=== PATIENT | female | born 1975 | race African-American/Black ===

== ENCOUNTER 2021-06-26 13:32 | Emergency (ER) | payer BC ==
[~2021-06-26 13:32] MED LIST: Iopamidol-370 76% 500 ML 1 ML ONE
[2021-06-26 14:49] LABS: #Lymphocytes 1.7 thou/uL (1.20-3.40); #Monocytes 0.6 thou/uL (0.11-0.59); #Neutrophils 9.6 thou/uL (1.40-6.50); %Basophils 0.3 % (0.0-1.0); %Eosinophils 0.4 % (0.0-10.0); %Lymphocytes 14.2 % (21.0-51.0); %Monocytes 4.8 % (0.0-10.0); %Neutrophils 80.3 % (42.0-75.0); Hemoglobin 14.5 g/dL (12.0-16.0); Mean Corpuscular HGB CONC 31.3 g/dL (32.0-36.0); Mean Corpuscular Hemoglobin 25.9 pg (27.0-31.0); Mean Corpuscular Volume 82.6 fL (78.0-98.0); Mean Platelet Volume 7.3 fL (7.4-10.4); Platelet Count 389 thou/uL (130-400); Red Blood Cell (RBC) Count 5.61 mill/uL (4.20-5.40)
[2021-06-26 15:00] LABS: Bilirubin Negative (Negative); Blood, Urine 3+ (Negative); Clarity Turbid (Clear); Glucose, Urine (Dipstick) Normal (Negative); Leukocyte 250 Leu/uL (Negative); Nitrite Negative (Negative); Protein, Urine (Dipstick) 20 mg/dL (Neg-Trace); RBC/HPF Greater than 50 HPF (0-3); Specific Gravity, Urine 1.016 (1.002-1.036); Squamous Epithelial None Seen HPF (0-3); Urobilinogen Normal mg/dL (Less than 2); WBC/HPF 21-50 HPF (0-3)
[2021-06-26 15:01] LABS: Pregnancy Test - Urine (BHCG) Negative (Negative); Pregu Control Background? CLEAR/WHITE (CLR/WHITE); Pregu Control Bar Appear? YES (CONTROL BAR); Specific Gravity 1.016 (1.002-1.036)
[2021-06-26 15:02] LABS: Bacteria/HPF 1+ HPF (None Seen)
[2021-06-26 15:09] LABS: Ketone, Urine 40 mg/dL (Negative)
[2021-06-26 15:12] LABS: ALT (SGPT) 15 U/L (8-55); AST (SGOT) 16 U/L (5-34); Albumin 4.4 g/dL (3.5-5.0); Alkaline Phosphatase 67 U/L (40-110); Anion Gap 21 mmol/L (10-20); BUN (Urea Nitrogen) 18 mg/dL (7.0-18.7); Bilirubin, Total 0.7 mg/dL (0.2-1.2); Calc. Creatinine Clearance 0 mL/min (70-130); Calcium 10.1 mg/dL (7.8-10.44); Carbon Dioxide 15 mmol/L (22-29); Chloride 101 mmol/L (98-107); Globulin 4.3 g/dL (2.4-3.5); Glucose 109 mg/dL (70-105); Potassium 3.8 mmol/L (3.5-5.1); Protein, Total 8.7 g/dL (6.0-8.3); Sodium 133 mmol/L (136-145)
[2021-06-26 22:42] LABS: SARS-CoV-2 PCR by NAA Not Detected (NotDetected)
== END 2021-06-26 16:50 | disposition home or self-care (01) ==
LOC: ERS 13:32
DX: R00.2 Palpitations (principal); R42 Dizziness and giddiness; R06.00 Dyspnea, unspecified; R53.81 Other malaise; R05 Cough; R06.01 Orthopnea; R06.02 Shortness of breath; E78.5 Hyperlipidemia, unspecified; I10 Essential (primary) hypertension; Z20.822 Contact with and (suspected) exposure to COVID-19
CPT/HCPCS: 36415; 70450; 71275; 80053; 81003; 81015; 81025; 84484; 85025; 93005; Q9967; U0003; U0005

== ENCOUNTER 2021-07-05 15:13 | Inpatient (IN) | payer BC ==
[2021-07-05] MEDS ORDERED: Senokot S 8.6-50 MG TAB PO PRN (22:53)
[2021-07-05] MEDS ORDERED: HYDROcodone/Acetaminophen 5/325 mg Tablet PO PRN (22:53)
[2021-07-05] MEDS ORDERED: Ondansetron PF 4 MG/2 ML Vial IVP PRN (22:53)
[2021-07-05] MEDS ORDERED: HYDROcodone/Acetaminophen 7.5/325 mg Tablet PO PRN (22:53)
[2021-07-05 22:55] VITALS: BMI 50.0
[2021-07-05] MEDS ORDERED: Melatonin 3 MG TAB PO PRN (23:04)
[2021-07-05] MEDS ORDERED: Metoprolol Tartrate 25 MG TAB PO SCH (23:15)
[2021-07-05] MEDS ORDERED: Enoxaparin Sodium 40 MG/0.4 ML SYRINGE SC SCH (23:15)
[2021-07-05 23:57] LABS: Troponin I Less than 0.010 ng/mL (< 0.028)
[2021-07-06 06:32] LABS: #Basophils 0.1 thou/uL (0.0-0.2); #Eosinphils 0.2 thou/uL (0.0-0.7); #Lymphocytes 1.9 thou/uL (1.20-3.40); #Monocytes 0.7 thou/uL (0.11-0.59); #Neutrophils 8.2 thou/uL (1.40-6.50); %Basophils 0.6 % (0.0-1.0); %Eosinophils 1.9 % (0.0-10.0); %Lymphocytes 16.8 % (21.0-51.0); %Monocytes 6.6 % (0.0-10.0); %Neutrophils 74.1 % (42.0-75.0); Mean Corpuscular HGB CONC 31.8 g/dL (32.0-36.0); Mean Corpuscular Hemoglobin 26.7 pg (27.0-31.0); Mean Corpuscular Volume 83.9 fL (78.0-98.0); Mean Platelet Volume 7.2 fL (7.4-10.4); Platelet Count 385 thou/uL (130-400); RBC Distribution Width 15.9 % (11.5-14.5); Red Blood Cell (RBC) Count 4.88 mill/uL (4.20-5.40); White Blood Cell (WBC) Count 11.1 thou/uL (4.8-10.8)
[2021-07-06 06:46] LABS: ALT (SGPT) 13 U/L (8-55); AST (SGOT) 13 U/L (5-34); Alkaline Phosphatase 64 U/L (40-110); Anion Gap 16 mmol/L (10-20); BUN (Urea Nitrogen) 14 mg/dL (7.0-18.7); Bilirubin, Total 0.3 mg/dL (0.2-1.2); Calc. Creatinine Clearance 161 mL/min (70-130); Calcium 9.9 mg/dL (7.8-10.44); Carbon Dioxide 21 mmol/L (22-29); Cardiac Risk 6.4 (Less than 4.5); Chloride 107 mmol/L (98-107); Cholesterol 197 mg/dl (< 200 Desired); Globulin 3.6 g/dL (2.4-3.5); Glucose 107 mg/dL (70-105); HDL Cholesterol 31 mg/dL (>60 Neg Risk); LDL Cholesterol, Calculated 151 mg/dL; Potassium 3.5 mmol/L (3.5-5.1); Protein, Total 7.6 g/dL (6.0-8.3); Sodium 140 mmol/L (136-145); Triglycerides 75 mg/dL (Less than 150)
[2021-07-06] MEDS: Enoxaparin Sodium 40 MG/0.4 ML SYRINGE SC SCH (08:39)
[2021-07-06] MEDS: Metoprolol Tartrate 25 MG TAB PO SCH ×2 (08:39→21:12)
[2021-07-06] MEDS ORDERED: Famotidine 20 MG TAB PO SCH (09:00)
[2021-07-06] MEDS ORDERED: Regadenoson 0.4 MG/5 ML SYRINGE ONE (11:26)
[2021-07-06] MEDS ORDERED: Lidocaine 2% Viscous Solution 20 ML, Aluminum & Magnesium Hydroxide 30 ML, Donnatal Eli... SSW SCH (17:36)
[2021-07-06] MEDS: Sucralfate 1 GM TAB PO SCH (21:11)
[2021-07-07] MEDS: Sucralfate 1 GM TAB PO SCH ×4 (08:21→20:23)
[2021-07-07] MEDS ORDERED: Lorazepam 0.5 MG TAB PO PRN (10:56)
[2021-07-07] MEDS: Metoprolol Tartrate 25 MG TAB PO SCH ×2 (11:02→20:23)
[2021-07-07] MEDS: Acetaminophen 325 MG TAB PO PRN (19:41)
[2021-07-08] MEDS: Metoprolol Tartrate 25 MG TAB PO SCH ×2 (09:21→20:08)
[2021-07-08] MEDS: Sucralfate 1 GM TAB PO SCH ×4 (09:21→20:08)
[2021-07-09] MEDS: Sucralfate 1 GM TAB PO SCH ×4 (06:21→20:27)
[2021-07-09] MEDS: Metoprolol Tartrate 25 MG TAB PO SCH ×2 (07:35→20:27)
[2021-07-09] MEDS ORDERED: Communication Order-Pharmacy FS SCH (08:15)
[2021-07-09] MEDS ORDERED: Sodium Chloride 0.9% 1,000 ML IV SCH (08:15)
[2021-07-09] MEDS ORDERED: Cetirizine HCl 10 MG TAB PO SCH (09:00)
[2021-07-09] MEDS ORDERED: Iopamidol 370 76% 50 ML VIAL FS ONE (10:30)
[2021-07-09] MEDS ORDERED: Iopamidol 370 76% 100 ML VIAL ONE (10:30)
[2021-07-09] MEDS ORDERED: Lidocaine 1% (PF) 30 ML VIAL ONE (11:15)
[2021-07-09] MEDS ORDERED: Fentanyl 100 MCG/2 ML VIAL ONE (12:17)
[2021-07-09] MEDS ORDERED: Midazolam HCl 2 mg/2 ml Vial ONE (12:17)
[2021-07-09] MEDS ORDERED: Verapamil 5 MG/2 ML VIAL ONE (12:20)
[2021-07-09] MEDS ORDERED: Nitroglycerin 100MG/250ML BOT 250 ML ONE (12:20)
[2021-07-09] MEDS ORDERED: Heparin 10,000 UNITS/ 10 ML VIAL ONE (12:20)
[2021-07-09] MEDS ORDERED: hydrALAZINE 20 MG/ML VIAL ONE (12:58)
[2021-07-09] MEDS: Fluticasone Propionate Nasal Spray 16 gm Bottle NASAL SCH (17:38)
[2021-07-09] MEDS: Loratadine 10 MG TAB PO SCH (17:38)
[2021-07-09] MEDS: Acetaminophen 325 MG TAB PO PRN (22:03)
[2021-07-10] MEDS: Sucralfate 1 GM TAB PO SCH (06:17)
[2021-07-10 07:58] VITALS: BP 133/86; TEMP 98.1
[2021-07-10] MEDS: Metoprolol Tartrate 25 MG TAB PO SCH (09:27)
[2021-07-10] MEDS: Enoxaparin Sodium 40 MG/0.4 ML SYRINGE SC SCH (09:27)
[2021-07-10] MEDS: Loratadine 10 MG TAB PO SCH (09:29)
[2021-07-10] MEDS: Fluticasone Propionate Nasal Spray 16 gm Bottle NASAL SCH (09:29)
== END 2021-07-10 10:53 | disposition home or self-care (01) | DRG 384 ==
LOC: 2NO 15:13 → OBSVTOIN 07-08 11:45
PROVIDERS: ADMIT Internal Medicine; ATTEND Family Medicine
PROC: 4A023N7 Measurement of Cardiac Sampling and Pressure, Left Heart, Percutaneous Approach (ICD-10-PCS; principal; 2021-07-09)
PROC: B2111ZZ Fluoroscopy of Multiple Coronary Arteries using Low Osmolar Contrast (ICD-10-PCS; 2021-07-09)
DX: K27.9 Peptic ulcer, site unspecified, unspecified as acute or chronic, without hemorrhage or perforation (principal); Z68.43 Body mass index [BMI] 50.0-59.9, adult; F41.0 Panic disorder [episodic paroxysmal anxiety]; I10 Essential (primary) hypertension; E78.5 Hyperlipidemia, unspecified; I49.1 Atrial premature depolarization; G89.29 Other chronic pain; M54.9 Dorsalgia, unspecified; K21.9 Gastro-esophageal reflux disease without esophagitis; E66.01 Morbid (severe) obesity due to excess calories; J32.9 Chronic sinusitis, unspecified; Z53.20 Procedure and treatment not carried out because of patient's decision for unspecified reasons; Z88.1 Allergy status to other antibiotic agents; Z88.8 Allergy status to other drugs, medicaments and biological substances; Z91.018 Allergy to other foods; Z79.899 Other long term (current) drug therapy; Z83.3 Family history of diabetes mellitus; Z82.49 Family history of ischemic heart disease and other diseases of the circulatory system; Z80.0 Family history of malignant neoplasm of digestive organs
CPT/HCPCS: 36415; 76705; 78452; 80061; 83880; 93005; 93010; 93017; 93306; 93458; 99152; 99153; A9500; J0360; J1644; J1650; J2001; J2250; J2785; J3010; J7050; Q9967

== ENCOUNTER 2021-07-29 07:07 | Day surgery (SDC) | payer BC ==
[2021-07-26 09:03] VITALS: BMI 48.2
[2021-07-29] MEDS ORDERED: Lidocaine 1% PF 5 ML VIAL ONE (08:51)
[2021-07-29] MEDS ORDERED: PROPOFOL 200 MG/20 ML VIAL ONE (08:51)
[2021-07-29] MEDS ORDERED: Glycopyrrolate 0.2 MG/ML 5 ML SYRINGE ONE (08:51)
[2021-07-29] MEDS ORDERED: Labetalol HCl 100 MG/20 ML VIAL ONE (10:35)
== END 2021-07-29 11:20 | disposition home or self-care (01) ==
LOC: SDC 07:07
PROVIDERS: ATTEND Internal Medicine Gastroenterology
PROC: 0DB78ZX Excision of Stomach, Pylorus, Via Natural or Artificial Opening Endoscopic, Diagnostic (ICD-10-PCS; principal; 2021-07-29)
DX: K29.70 Gastritis, unspecified, without bleeding (principal); K44.9 Diaphragmatic hernia without obstruction or gangrene; R14.0 Abdominal distension (gaseous); K59.00 Constipation, unspecified; E78.00 Pure hypercholesterolemia, unspecified; Z79.899 Other long term (current) drug therapy; Z88.0 Allergy status to penicillin; Z88.8 Allergy status to other drugs, medicaments and biological substances; Z91.018 Allergy to other foods
CPT/HCPCS: 88305; 88312; J2704

== ENCOUNTER 2021-07-30 10:56 | Outpatient (CLI) | payer BC | END 2021-07-30 10:57 | disposition home or self-care (01) | LOC: NM 10:56 | PROVIDERS: ATTEND Internal Medicine Gastroenterology | DX: R14.0 Abdominal distension (gaseous) (principal) | CPT/HCPCS: 78227; A9537 ==

== ENCOUNTER 2021-08-14 10:02 | Inpatient (IN) | payer BC ==
[2021-08-14 10:58] LABS: #Eosinphils 0.1 thou/uL (0.0-0.7); #Lymphocytes 1.8 thou/uL (1.20-3.40); #Monocytes 0.7 thou/uL (0.11-0.59); #Neutrophils 5.4 thou/uL (1.40-6.50); %Basophils 0.4 % (0.0-1.0); %Eosinophils 1.1 % (0.0-10.0); %Lymphocytes 22.1 % (21.0-51.0); %Monocytes 9.1 % (0.0-10.0); %Neutrophils 67.3 % (42.0-75.0); Hemoglobin 14.7 g/dL (12.0-16.0); Mean Corpuscular HGB CONC 32.8 g/dL (32.0-36.0); Mean Corpuscular Hemoglobin 27.9 pg (27.0-31.0); Mean Platelet Volume 9.9 fL (7.4-10.4); Platelet Count 169 thou/uL (130-400); RBC Distribution Width 18.1 % (11.5-14.5); Red Blood Cell (RBC) Count 5.27 mill/uL (4.20-5.40)
[2021-08-14 11:25] LABS: ALT (SGPT) 71 U/L (8-55); AST (SGOT) 34 U/L (5-34); Alkaline Phosphatase 55 U/L (40-110); Anion Gap 23 mmol/L (10-20); BUN (Urea Nitrogen) 18 mg/dL (7.0-18.7); Bilirubin, Total 1.1 mg/dL (0.2-1.2); Calc. Creatinine Clearance 0 mL/min (70-130); Calcium 10.1 mg/dL (7.8-10.44); Carbon Dioxide 16 mmol/L (22-29); Chloride 112 mmol/L (98-107); Globulin 4.1 g/dL (2.4-3.5); Glucose 128 mg/dL (70-105); Lipase 75 U/L (8-78); Potassium 4.4 mmol/L (3.5-5.1); Protein, Total 8.1 g/dL (6.0-8.3); Sodium 147 mmol/L (136-145)
[2021-08-14] MEDS ORDERED: Iopamidol-370 76% 500 ML 1 ML ONE (12:16)
[2021-08-14 13:08] LABS: BHCG - Serum Negative (NEGATIVE); Pregs Control Background? CLEAR/WHITE (CLR/WHITE); Pregs Control Bar Appear? YES (CONTROL BAR)
[2021-08-14] MEDS ORDERED: Ondansetron PF 4 MG/2 ML Vial IVP PRN (16:50)
[2021-08-14] MEDS ORDERED: Ondansetron ODT 4 MG TAB PO PRN (16:50)
[2021-08-14] MEDS ORDERED: Acetaminophen 325 MG TAB PO PRN (16:50)
[2021-08-14] MEDS: Dextrose 5% in Water 1,000 ML IV SCH (17:10)
[2021-08-14 17:16] VITALS: BMI 45.0
[2021-08-14 17:46] LABS: Lactic Acid 2.1 mmol/L (0.5-2.2)
[2021-08-14] MEDS: Metoclopramide HCl 10 MG TAB PO SCH (20:11)
[2021-08-15 01:49] LABS: Troponin I 0.028 ng/mL (< 0.028)
[2021-08-15] MEDS ORDERED: Morphine 4 MG/ML VIAL SLOW IVP SCH (02:30)
[2021-08-15] MEDS: Dextrose 5% in Water 1,000 ML IV SCH (03:41)
[2021-08-15 06:25] LABS: #Basophils 0.1 thou/uL (0.0-0.2); #Eosinphils 0.1 thou/uL (0.0-0.7); #Lymphocytes 1.4 thou/uL (1.20-3.40); #Monocytes 0.9 thou/uL (0.11-0.59); #Neutrophils 4.6 thou/uL (1.40-6.50); %Basophils 0.8 % (0.0-1.0); %Eosinophils 1.2 % (0.0-10.0); %Lymphocytes 20.1 % (21.0-51.0); %Monocytes 12.8 % (0.0-10.0); %Neutrophils 65.2 % (42.0-75.0); Mean Corpuscular HGB CONC 31.9 g/dL (32.0-36.0); Mean Corpuscular Hemoglobin 27.6 pg (27.0-31.0); Mean Corpuscular Volume 86.5 fL (78.0-98.0); Mean Platelet Volume 8.4 fL (7.4-10.4); Platelet Count 237 thou/uL (130-400); RBC Distribution Width 18.3 % (11.5-14.5); Red Blood Cell (RBC) Count 4.71 mill/uL (4.20-5.40)
[2021-08-15 06:47] LABS: Anion Gap 14 mmol/L (10-20); BUN (Urea Nitrogen) 15 mg/dL (7.0-18.7); Calc. Creatinine Clearance 128 mL/min (70-130); Calcium 10.2 mg/dL (7.8-10.44); Carbon Dioxide 19 mmol/L (22-29); Chloride 117 mmol/L (98-107); Glucose 168 mg/dL (70-105); Potassium 3.1 mmol/L (3.5-5.1); Sodium 147 mmol/L (136-145)
[2021-08-15] MEDS ORDERED: Pantoprazole 40 MG GRANULES PACKET PO SCH (09:00)
[2021-08-15] MEDS ORDERED: FLU VACC QS2021-22(6MOS UP)/PF 60 MCG/0.5 ML SYRINGE IM ONE (09:00)
[2021-08-15] MEDS: Metoclopramide HCl 10 MG TAB PO SCH ×4 (09:10→22:00)
[2021-08-15 09:39] LABS: Hemoglobin A1c 6.2 % (4.0-6.0)
[2021-08-15 12:05] LABS: SARS-CoV-2 PCR by NAA Not Detected (NotDetected)
[2021-08-15 13:09] LABS: Cardiac Risk 13.4 (Less than 4.5)
[2021-08-15 14:14] LABS: Amphetamine Not Detected (NotDetected); Barbiturates Screen Not Detected (NotDetected); Benzodiazepine Screen Not Detected (NotDetected); Cocaine Metabolite Screen Not Detected (NotDetected); Methadone Not Detected (NotDetected); Methamphetamine Not Detected (NotDetected); Opiate Screen Not Detected (NotDetected); Oxycodone Screen Not Detected (NotDetected); Phencyclidine (PCP) Not Detected (NotDetected); THC/Cannabinoid Screen Not Detected (NotDetected); Tricyclic Screen Not Detected (NotDetected)
[2021-08-15 14:26] LABS: Potassium, Urine 42.4 mmol/L; Sodium, Urine Less than 20 mmol/L (Not Available)
[2021-08-15] MEDS ORDERED: Dextrose 5% in Water 1,000 ML IV SCH (15:30)
[2021-08-15] MEDS: Potassium Chloride 40 MEQ in Sodium Chloride 0.45% 1,000 ML IV SCH (16:45)
[2021-08-15 17:55] LABS: Magnesium 2.3 mg/dL (1.6-2.6)
[2021-08-16] MEDS: Potassium Chloride 40 MEQ in Sodium Chloride 0.45% 1,000 ML IV SCH ×3 (00:13→13:30)
[2021-08-16 07:29] LABS: Anion Gap 11 mmol/L (10-20); BUN (Urea Nitrogen) 9 mg/dL (7.0-18.7); Calc. Creatinine Clearance 147 mL/min (70-130); Calcium 9.3 mg/dL (7.8-10.44); Carbon Dioxide 21 mmol/L (22-29); Chloride 115 mmol/L (98-107); Glucose 161 mg/dL (70-105); Potassium 3.7 mmol/L (3.5-5.1); Sodium 143 mmol/L (136-145)
[2021-08-16] MEDS ORDERED: hydrALAZINE 20 MG/ML VIAL SLOW IVP PRN (08:05)
[2021-08-16] MEDS: hydrALAZINE 25 MG TAB PO SCH ×2 (09:04→14:14)
[2021-08-16] MEDS: Metoclopramide HCl 10 MG TAB PO SCH ×4 (09:04→20:12)
[2021-08-16] MEDS ORDERED: Lorazepam 0.5 MG TAB PO PRN (13:36)
[2021-08-16] MEDS ORDERED: Potassium Chloride 20 MEQ TAB PO SCH (15:00)
[2021-08-16] MEDS: Sodium Chloride 0.45% 1,000 ML IV SCH ×2 (15:20→20:09)
[2021-08-16] MEDS: Sucralfate 1 GM TAB PO SCH (17:36)
[2021-08-16] MEDS: Losartan 25 MG TAB PO SCH (20:11)
[2021-08-16] MEDS: Metoprolol Tartrate 25 MG TAB PO SCH (21:02)
[2021-08-17] MEDS: Sodium Chloride 0.45% 1,000 ML IV SCH ×2 (01:23→19:13)
[2021-08-17] MEDS: Metoclopramide HCl 10 MG TAB PO SCH ×4 (08:18→20:31)
[2021-08-17] MEDS: Metoprolol Tartrate 25 MG TAB PO SCH ×2 (08:18→20:30)
[2021-08-17] MEDS: Sucralfate 1 GM TAB PO SCH ×3 (08:18→18:12)
[2021-08-17] MEDS: Potassium Chloride 20 MEQ TAB PO SCH (08:18)
[2021-08-17 10:37] LABS: Anion Gap 12 mmol/L (10-20); BUN (Urea Nitrogen) 7 mg/dL (7.0-18.7); Calc. Creatinine Clearance 156 mL/min (70-130); Calcium 8.6 mg/dL (7.8-10.44); Carbon Dioxide 17 mmol/L (22-29); Chloride 110 mmol/L (98-107); Glucose 219 mg/dL (70-105); Potassium 3.5 mmol/L (3.5-5.1); Sodium 135 mmol/L (136-145)
[2021-08-17 15:21] LABS: Bacteria/HPF 4+ HPF (None Seen); Bilirubin Negative (Negative); Blood, Urine Negative (Negative); Clarity Clear (Clear); Glucose, Urine (Dipstick) Normal (Negative); Ketone, Urine Negative (Negative); Leukocyte Negative Leu/uL (Negative); Nitrite Negative (Negative); Protein, Urine (Dipstick) Negative (Neg-Trace); RBC/HPF 0-3 HPF (0-3); Specific Gravity, Urine 1.006 (1.002-1.036); Urobilinogen Normal mg/dL (Less than 2); WBC/HPF 0-3 HPF (0-3)
[2021-08-17 15:23] LABS: Urine Culture Reflex No No
[2021-08-17 17:46] LABS: Vitamin D, 25 Hydroxy 19.5 ng/ml (> 30.0)
[2021-08-17] MEDS: Losartan 25 MG TAB PO SCH (20:30)
[2021-08-18 05:44] LABS: Anion Gap 11 mmol/L (10-20); BUN (Urea Nitrogen) 8 mg/dL (7.0-18.7); Calc. Creatinine Clearance 150 mL/min (70-130); Calcium 8.8 mg/dL (7.8-10.44); Carbon Dioxide 15 mmol/L (22-29); Chloride 112 mmol/L (98-107); Glucose 220 mg/dL (70-105); Potassium 3.7 mmol/L (3.5-5.1); Sodium 134 mmol/L (136-145)
[2021-08-18] MEDS: Potassium Chloride 20 MEQ TAB PO SCH (08:18)
[2021-08-18] MEDS: Sucralfate 1 GM TAB PO SCH ×4 (08:18→17:55)
[2021-08-18] MEDS: Metoclopramide HCl 10 MG TAB PO SCH ×5 (08:18→21:17)
[2021-08-18] MEDS: Metoprolol Tartrate 25 MG TAB PO SCH ×3 (08:26→21:18)
[2021-08-18 10:23] LABS: INR-International Normal Ratio 1.1; PTT 30.2 sec (22.9-36.1); Prothrombin Time 14.6 sec (12.0-14.7)
[2021-08-18 10:54] LABS: Syphilis Antibody Index 7.78 S/CO (<1.00 Non-Reactive)
[2021-08-18 11:34] LABS: Syphilis Antibody INDETERMINATE (Nonreactive)
[2021-08-18] MEDS: Thiamine HCl 200 MG/2 ML VIAL SLOW IVP SCH (19:19)
[2021-08-19] MEDS: Potassium Chloride 20 MEQ TAB PO SCH (08:39)
[2021-08-19] MEDS: Folic Acid 1 MG TAB PO SCH (08:40)
[2021-08-19] MEDS: Metoclopramide HCl 10 MG TAB PO SCH ×4 (08:40→20:34)
[2021-08-19] MEDS: Sucralfate 1 GM TAB PO SCH ×3 (08:40→17:51)
[2021-08-19] MEDS: Metoprolol Tartrate 25 MG TAB PO SCH ×2 (08:42→20:34)
[2021-08-19] MEDS ORDERED: Cholecalciferol 1,000 UNITS (25 MCG) TAB PO SCH ×2 (09:00→14:00)
[2021-08-19] MEDS ORDERED: Thiamine 100 MG TAB PO SCH (09:00)
[2021-08-19] MEDS ORDERED: Aspirin 325 MG TAB PO SCH (13:15)
[2021-08-19 14:25] LABS: #Basophils 0.1 thou/uL (0.0-0.2); #Eosinphils 0.3 thou/uL (0.0-0.7); #Monocytes 0.4 thou/uL (0.11-0.59); #Neutrophils 6.2 thou/uL (1.40-6.50); %Basophils 1.1 % (0.0-1.0); %Eosinophils 3.6 % (0.0-10.0); %Monocytes 4.4 % (0.0-10.0); %Neutrophils 68.9 % (42.0-75.0); Hemoglobin 11.4 g/dL (12.0-16.0); Mean Corpuscular HGB CONC 33.4 g/dL (32.0-36.0); Mean Corpuscular Hemoglobin 28.8 pg (27.0-31.0); Mean Corpuscular Volume 86.2 fL (78.0-98.0); Mean Platelet Volume 8.9 fL (7.4-10.4); Platelet Count 139 thou/uL (130-400); RBC Distribution Width 18.6 % (11.5-14.5); Red Blood Cell (RBC) Count 3.96 mill/uL (4.20-5.40)
[2021-08-19 14:31] LABS: ALT (SGPT) 64 U/L (8-55); AST (SGOT) 32 U/L (5-34); Albumin 3.1 g/dL (3.5-5.0); Alkaline Phosphatase 58 U/L (40-110); Anion Gap 10 mmol/L (10-20); BUN (Urea Nitrogen) 7 mg/dL (7.0-18.7); Bilirubin, Total 0.6 mg/dL (0.2-1.2); Calc. Creatinine Clearance 161 mL/min (70-130); Calcium 9.3 mg/dL (7.8-10.44); Carbon Dioxide 20 mmol/L (22-29); Chloride 110 mmol/L (98-107); Globulin 3.2 g/dL (2.4-3.5); Glucose 113 mg/dL (70-105); Potassium 3.8 mmol/L (3.5-5.1); Protein, Total 6.3 g/dL (6.0-8.3); Sodium 136 mmol/L (136-145)
[2021-08-19] MEDS: Thiamine HCl 200 MG/2 ML VIAL SLOW IVP SCH (18:52)
[2021-08-19 18:55] LABS: Troponin I 0.017 ng/mL (< 0.028)
[2021-08-19 22:02] LABS: Troponin I Less than 0.010 ng/mL (< 0.028)
[2021-08-20] MEDS: Metoprolol Tartrate 25 MG TAB PO SCH ×2 (09:30→21:21)
[2021-08-20] MEDS: Potassium Chloride 20 MEQ TAB PO SCH (09:30)
[2021-08-20] MEDS: Sucralfate 1 GM TAB PO SCH ×3 (09:30→17:03)
[2021-08-20] MEDS: Metoclopramide HCl 10 MG TAB PO SCH ×4 (09:30→21:21)
[2021-08-20] MEDS: Cholecalciferol 1,000 UNITS (25 MCG) TAB PO SCH (09:32)
[2021-08-20] MEDS: Folic Acid 1 MG TAB PO SCH (09:32)
[2021-08-20] MEDS: Enoxaparin Sodium 40 MG/0.4 ML SYRINGE SC SCH (09:32)
[2021-08-20] MEDS ORDERED: Thiamine HCl 200 MG/2 ML VIAL SLOW IVP SCH (12:15)
[2021-08-20 12:21] LABS: DRVVT Confirm 30.4; HEX PHOS LA Tube 1 41.9 SEC; HEX PHOS LA Tube 2 39.4 SEC; Hexagonal Phospholipid Neut 2.5 SEC (0-8.0)
[2021-08-20 12:24] LABS: Factor VIII Test 222.9 % ACTIVE (56-157)
[2021-08-20] MEDS: Thiamine HCl 200 MG/2 ML VIAL SLOW IVP SCH (17:50)
[2021-08-21] MEDS: Metoclopramide HCl 10 MG TAB PO SCH ×4 (06:33→22:11)
[2021-08-21] MEDS: Sucralfate 1 GM TAB PO SCH ×3 (06:33→17:51)
[2021-08-21] MEDS: Folic Acid 1 MG TAB PO SCH (08:17)
[2021-08-21] MEDS: Fenofibrate Nanocrystallized 145 MG TAB PO SCH (08:17)
[2021-08-21] MEDS: Potassium Chloride 20 MEQ TAB PO SCH (08:17)
[2021-08-21] MEDS: Aspirin 81 mg Enteric Coated Tablet PO SCH (08:17)
[2021-08-21] MEDS: Cholecalciferol 1,000 UNITS (25 MCG) TAB PO SCH (08:18)
[2021-08-21] MEDS: Enoxaparin Sodium 40 MG/0.4 ML SYRINGE SC SCH (08:19)
[2021-08-21] MEDS: Metoprolol Tartrate 25 MG TAB PO SCH ×2 (08:19→22:11)
[2021-08-21] MEDS: Thiamine HCl 200 MG/2 ML VIAL SLOW IVP SCH (17:51)
[2021-08-22] MEDS: Metoclopramide HCl 10 MG TAB PO SCH ×4 (08:48→20:09)
[2021-08-22] MEDS: Fenofibrate Nanocrystallized 145 MG TAB PO SCH (08:48)
[2021-08-22] MEDS: Cholecalciferol 1,000 UNITS (25 MCG) TAB PO SCH (08:48)
[2021-08-22] MEDS: Aspirin 81 mg Enteric Coated Tablet PO SCH (08:48)
[2021-08-22] MEDS: Potassium Chloride 20 MEQ TAB PO SCH (08:48)
[2021-08-22] MEDS: Metoprolol Tartrate 25 MG TAB PO SCH ×2 (08:49→20:09)
[2021-08-22] MEDS: Folic Acid 1 MG TAB PO SCH (08:49)
[2021-08-22] MEDS: Sucralfate 1 GM TAB PO SCH ×3 (08:49→16:59)
[2021-08-22] MEDS: Enoxaparin Sodium 40 MG/0.4 ML SYRINGE SC SCH (08:51)
[2021-08-22] MEDS ORDERED: Simethicone Chewable 80 MG TAB PO PRN (15:09)
[2021-08-22] MEDS: Thiamine HCl 200 MG/2 ML VIAL SLOW IVP SCH (16:59)
[2021-08-23 00:25] LABS: SARS-CoV-2 PCR by NAA Not Detected (NotDetected)
[2021-08-23] MEDS: Cholecalciferol 1,000 UNITS (25 MCG) TAB PO SCH (08:20)
[2021-08-23] MEDS: Folic Acid 1 MG TAB PO SCH (08:22)
[2021-08-23] MEDS: Potassium Chloride 20 MEQ TAB PO SCH (08:22)
[2021-08-23] MEDS: Fenofibrate Nanocrystallized 145 MG TAB PO SCH (08:22)
[2021-08-23] MEDS: Sucralfate 1 GM TAB PO SCH ×3 (08:22→16:20)
[2021-08-23] MEDS: Metoprolol Tartrate 25 MG TAB PO SCH ×2 (08:23→21:14)
[2021-08-23] MEDS: Enoxaparin Sodium 40 MG/0.4 ML SYRINGE SC SCH (08:24)
[2021-08-23] MEDS: Metoclopramide HCl 10 MG TAB PO SCH ×4 (08:24→21:14)
[2021-08-23] MEDS: Aspirin 81 mg Enteric Coated Tablet PO SCH (08:24)
[2021-08-23 12:17] LABS: CSF, Glucose 65 mg/dl (40-70); CSF, Protein 26 mg/dL (15-40)
[2021-08-23 13:03] LABS: CSF Source CSF; Clarity Clear (Clear); Tube # 4
[2021-08-23 14:33] LABS: HBSAg Index 0.27 S/CO (0-0.99); HIV (1/2) Antibody/Antigen Non-Reactive (NonReactive); HIV 1/2 INDEX 0.11 S/CO (<1.00); Hep B Surf Ag Non-Reactive S/CO (NonReactive); Hep C IgG Ab Non-Reactive (NonReactive)
[2021-08-23 14:34] LABS: HBSAB Concentration 142.37 mIU/mL; Hep B Surf AB Reactive (NonReactive)
[2021-08-23] MEDS: Thiamine HCl 200 MG/2 ML VIAL SLOW IVP SCH (16:19)
[2021-08-23 18:03] LABS: HBCM Index 0.14 S/CO (0-0.79); HBSAg Index 0.24 S/CO (0-0.99); Hep A IgM AB Non-Reactive (NonReactive); Hep A IgM S/CO 0.11 S/CO (0-0.79); Hep B Surf Ag Non-Reactive S/CO (NonReactive); Hep C IgG Ab Non-Reactive (NonReactive); Hep C Index 0.11 S/CO (0-0.79); Hepatitis B Core IgM Abs Non-Reactive (NonReactive)
[2021-08-24] MEDS: Potassium Chloride 20 MEQ TAB PO SCH (08:53)
[2021-08-24] MEDS: Fenofibrate Nanocrystallized 145 MG TAB PO SCH (08:53)
[2021-08-24] MEDS: Cholecalciferol 1,000 UNITS (25 MCG) TAB PO SCH (08:53)
[2021-08-24] MEDS: Metoclopramide HCl 10 MG TAB PO SCH ×4 (08:54→20:46)
[2021-08-24] MEDS: Enoxaparin Sodium 40 MG/0.4 ML SYRINGE SC SCH (08:54)
[2021-08-24] MEDS: Aspirin 81 mg Enteric Coated Tablet PO SCH (08:54)
[2021-08-24] MEDS: Folic Acid 1 MG TAB PO SCH (08:54)
[2021-08-24] MEDS: Metoprolol Tartrate 25 MG TAB PO SCH ×2 (08:58→20:46)
[2021-08-24] MEDS: Sucralfate 1 GM TAB PO SCH ×3 (09:01→18:26)
[2021-08-24] MEDS: Thiamine HCl 200 MG/2 ML VIAL SLOW IVP SCH (18:26)
[2021-08-25] MEDS: Sucralfate 1 GM TAB PO SCH ×3 (08:35→17:38)
[2021-08-25] MEDS: Enoxaparin Sodium 40 MG/0.4 ML SYRINGE SC SCH (08:36)
[2021-08-25] MEDS: Cholecalciferol 1,000 UNITS (25 MCG) TAB PO SCH (08:36)
[2021-08-25] MEDS: Fenofibrate Nanocrystallized 145 MG TAB PO SCH (08:36)
[2021-08-25] MEDS: Metoclopramide HCl 10 MG TAB PO SCH ×4 (08:36→20:01)
[2021-08-25] MEDS: Aspirin 81 mg Enteric Coated Tablet PO SCH (08:36)
[2021-08-25] MEDS: Folic Acid 1 MG TAB PO SCH (08:36)
[2021-08-25] MEDS: Metoprolol Tartrate 25 MG TAB PO SCH ×2 (08:36→20:02)
[2021-08-25 09:14] LABS: #Eosinphils 0.3 thou/uL (0.0-0.7); #Lymphocytes 1.9 thou/uL (1.20-3.40); #Monocytes 0.7 thou/uL (0.11-0.59); #Neutrophils 5.3 thou/uL (1.40-6.50); %Basophils 0.6 % (0.0-1.0); %Eosinophils 3.3 % (0.0-10.0); %Lymphocytes 23.6 % (21.0-51.0); %Monocytes 8.5 % (0.0-10.0); Hemoglobin 11.7 g/dL (12.0-16.0); Mean Corpuscular HGB CONC 32.1 g/dL (32.0-36.0); Mean Corpuscular Hemoglobin 27.8 pg (27.0-31.0); Mean Corpuscular Volume 86.6 fL (78.0-98.0); Mean Platelet Volume 6.9 fL (7.4-10.4); Platelet Count 336 thou/uL (130-400); RBC Distribution Width 18.6 % (11.5-14.5); Red Blood Cell (RBC) Count 4.22 mill/uL (4.20-5.40); White Blood Cell (WBC) Count 8.2 thou/uL (4.8-10.8)
[2021-08-25 09:35] LABS: Anion Gap 14 mmol/L (10-20); BUN (Urea Nitrogen) 10 mg/dL (7.0-18.7); Calc. Creatinine Clearance 104 mL/min (70-130); Calcium 9.7 mg/dL (7.8-10.44); Carbon Dioxide 24 mmol/L (22-29); Chloride 105 mmol/L (98-107); Glucose 108 mg/dL (70-105); Potassium 3.4 mmol/L (3.5-5.1); Sodium 140 mmol/L (136-145)
[2021-08-25] MEDS: Potassium Chloride 20 MEQ TAB PO SCH (11:30)
[2021-08-25] MEDS ORDERED: Bicillin LA 2.4 MILL.UNITS/4 ML SYRINGE IM SCH (14:00)
[2021-08-25] MEDS: Thiamine HCl 200 MG/2 ML VIAL SLOW IVP SCH (17:38)
[2021-08-26] MEDS: Metoclopramide HCl 10 MG TAB PO SCH ×4 (08:12→20:54)
[2021-08-26] MEDS: Potassium Chloride 20 MEQ TAB PO SCH (08:12)
[2021-08-26] MEDS: Sucralfate 1 GM TAB PO SCH ×3 (08:12→17:09)
[2021-08-26] MEDS: Fenofibrate Nanocrystallized 145 MG TAB PO SCH (08:12)
[2021-08-26] MEDS: Aspirin 81 mg Enteric Coated Tablet PO SCH (08:12)
[2021-08-26] MEDS: Metoprolol Tartrate 25 MG TAB PO SCH ×2 (08:12→20:54)
[2021-08-26] MEDS: Cholecalciferol 1,000 UNITS (25 MCG) TAB PO SCH (08:21)
[2021-08-26] MEDS: Folic Acid 1 MG TAB PO SCH (08:21)
[2021-08-26] MEDS: Enoxaparin Sodium 40 MG/0.4 ML SYRINGE SC SCH (08:22)
[2021-08-26 15:38] LABS: West Nile Virus IgG Ab - CSF Negative (Negative); West Nile Virus IgM Ab - CSF Negative (Negative)
[2021-08-26] MEDS: Thiamine HCl 200 MG/2 ML VIAL SLOW IVP SCH (23:33)
[2021-08-27] MEDS: Cholecalciferol 1,000 UNITS (25 MCG) TAB PO SCH (08:00)
[2021-08-27] MEDS: Enoxaparin Sodium 40 MG/0.4 ML SYRINGE SC SCH (08:00)
[2021-08-27] MEDS: Potassium Chloride 20 MEQ TAB PO SCH (08:01)
[2021-08-27] MEDS: Sucralfate 1 GM TAB PO SCH ×3 (08:01→15:59)
[2021-08-27] MEDS: Fenofibrate Nanocrystallized 145 MG TAB PO SCH (08:01)
[2021-08-27] MEDS: Folic Acid 1 MG TAB PO SCH (08:03)
[2021-08-27] MEDS: Metoclopramide HCl 10 MG TAB PO SCH ×4 (08:03→21:12)
[2021-08-27] MEDS: Metoprolol Tartrate 25 MG TAB PO SCH ×2 (08:03→21:12)
[2021-08-27] MEDS: Aspirin 81 mg Enteric Coated Tablet PO SCH (08:03)
[2021-08-27] MEDS: Thiamine HCl 200 MG/2 ML VIAL SLOW IVP SCH (15:59)
[2021-08-28] MEDS: Enoxaparin Sodium 40 MG/0.4 ML SYRINGE SC SCH (08:31)
[2021-08-28] MEDS: Potassium Chloride 20 MEQ TAB PO SCH (08:32)
[2021-08-28] MEDS: Metoclopramide HCl 10 MG TAB PO SCH ×2 (08:32→11:00)
[2021-08-28] MEDS: Aspirin 81 mg Enteric Coated Tablet PO SCH (08:32)
[2021-08-28] MEDS: Metoprolol Tartrate 25 MG TAB PO SCH (08:32)
[2021-08-28] MEDS: Cholecalciferol 1,000 UNITS (25 MCG) TAB PO SCH (08:32)
[2021-08-28] MEDS: Sucralfate 1 GM TAB PO SCH ×2 (08:32→11:00)
[2021-08-28] MEDS: Folic Acid 1 MG TAB PO SCH (08:32)
[2021-08-28] MEDS: Fenofibrate Nanocrystallized 145 MG TAB PO SCH (08:32)
[2021-08-28 13:55] VITALS: BP 136/85; TEMP 98
[2021-08-28 19:09] LABS: Fungus Stain Final report (.)
[2021-08-29 02:04] LABS: Chlam.trachomatis by PCR,Urine Not Detected (NotDetected)
[2021-08-29 12:33] LABS: Cardiolipin IgM Ab Less than 0.8 MPL-U/mL (<10 Negative); EliA APS New Method **** NEW METHOD ****; beta-2-Glycoprotein I IgM Abs Less than 2.9 U/mL (<7 Negative)
[2021-08-29 12:43] LABS: ANA Symphony (Qualitative) Negative (Negative); ANA Symphony (Quantitative) 0.2 Ratio (< 0.7 Negative); Cardiolipin IgA Ab 2.3 APL-U/mL (<14 Negative); Cardiolipin IgG Ab 1.3 GPL-U/mL (<10 Negative); EliA Vaculitis New Method **** NEW METHOD ****; beta-2-Glycoprotein I IgA Ab 1.4 U/mL (<7 Negative); beta-2-Glycoprotein I IgG Ab 1.3 U/mL (<7 Negative); dsDNA IgG Antibody 2.7 IU/mL (<10 Negative)
== END 2021-08-28 15:25 | DRG 641 ==
LOC: ERS 10:02 → T4-B 16:02
PROVIDERS: ADMIT Hospitalist; ATTEND Internal Medicine Geriatric Medicine
PROC: 009U3ZX Drainage of Spinal Canal, Percutaneous Approach, Diagnostic (ICD-10-PCS; principal; 2021-08-23)
PROC: B01B1ZZ Fluoroscopy of Spinal Cord using Low Osmolar Contrast (ICD-10-PCS; 2021-08-23)
DX: E51.2 Wernicke's encephalopathy (principal); Z20.822 Contact with and (suspected) exposure to COVID-19; N17.9 Acute kidney failure, unspecified; E87.2 Acidosis; E87.0 Hyperosmolality and hypernatremia; E87.1 Hypo-osmolality and hyponatremia; Z68.42 Body mass index [BMI] 45.0-49.9, adult; I25.10 Atherosclerotic heart disease of native coronary artery without angina pectoris; E78.5 Hyperlipidemia, unspecified; K44.9 Diaphragmatic hernia without obstruction or gangrene; A53.0 Latent syphilis, unspecified as early or late; I10 Essential (primary) hypertension; K29.70 Gastritis, unspecified, without bleeding; E87.6 Hypokalemia; E55.9 Vitamin D deficiency, unspecified; E53.8 Deficiency of other specified B group vitamins; R82.71 Bacteriuria; E86.0 Dehydration; E66.9 Obesity, unspecified; Z28.21 Immunization not carried out because of patient refusal; Z88.1 Allergy status to other antibiotic agents; Z88.8 Allergy status to other drugs, medicaments and biological substances; Z91.018 Allergy to other foods
CPT/HCPCS: 36415; 36416; 62270; 70450; 70553; 71045; 71275; 74177; 80048; 80053; 80061; 80074; 80306; 81001; 82010; 82306; 82607; 82746; 82945; 83036; 83516; 83605; 83690; 83735; 83880; 83930; 83935; 84133; 84157; 84300; 84425; 84443; 84484; 84703; 85025; 85240; 85250; 85379; 85598; 85610; 85613; 85652; 85730; 86038; 86140; 86146; 86147; 86225; 86592; 86593; 86706; 86780; 86788; 86789; 86803; 87070; 87102; 87205; 87206; 87340; 87389; 87491; 87529; 87591; 87899; 89051; 93005; 93010; 93306; 95816; 95819; 95957; J0360; J0561; J0744; J1650; J3411; J3480; J7070; Q9967; U0003; U0005

== ENCOUNTER 2021-09-23 08:51 | Outpatient (CLI) | payer BC | END 2021-09-23 08:52 | disposition home or self-care (01) | LOC: NM 08:51 | PROVIDERS: ATTEND Internal Medicine Gastroenterology | DX: R14.0 Abdominal distension (gaseous) (principal); R10.13 Epigastric pain; R94.8 Abnormal results of function studies of other organs and systems | CPT/HCPCS: 78264; A9541 ==

== ENCOUNTER 2021-10-10 09:51 | Inpatient (IN) | payer BC ==
[2021-10-10] MEDS ORDERED: Lorazepam 2 MG/ML VIAL ONE (10:32)
[2021-10-10 11:03] LABS: #Basophils 0.1 thou/uL (0.0-0.2); #Eosinphils 0.4 thou/uL (0.0-0.7); #Lymphocytes 1.7 thou/uL (1.20-3.40); #Monocytes 0.5 thou/uL (0.11-0.59); #Neutrophils 4.2 thou/uL (1.40-6.50); %Basophils 1.4 % (0.0-1.0); %Lymphocytes 24.9 % (21.0-51.0); %Monocytes 7.7 % (0.0-10.0); Hemoglobin 11.7 g/dL (12.0-16.0); Mean Corpuscular HGB CONC 31.9 g/dL (32.0-36.0); Mean Corpuscular Hemoglobin 28.7 pg (27.0-31.0); Mean Corpuscular Volume 90.1 fL (78.0-98.0); Mean Platelet Volume 7.5 fL (7.4-10.4); Platelet Count 407 thou/uL (130-400); RBC Distribution Width 17.1 % (11.5-14.5); Red Blood Cell (RBC) Count 4.07 mill/uL (4.20-5.40)
[2021-10-10 11:09] LABS: BHCG - Serum Negative (NEGATIVE); Pregs Control Background? CLEAR/WHITE (CLR/WHITE); Pregs Control Bar Appear? YES (CONTROL BAR)
[2021-10-10 11:15] LABS: ALT (SGPT) 40 U/L (8-55); AST (SGOT) 58 U/L (5-34); Albumin 3.6 g/dL (3.5-5.0); Alkaline Phosphatase 33 U/L (40-110); Anion Gap 22 mmol/L (10-20); BUN (Urea Nitrogen) 22 mg/dL (7.0-18.7); Bilirubin, Total 0.7 mg/dL (0.2-1.2); Calc. Creatinine Clearance 0 mL/min (70-130); Calcium 10.2 mg/dL (7.8-10.44); Carbon Dioxide 14 mmol/L (22-29); Chloride 107 mmol/L (98-107); Globulin 3.6 g/dL (2.4-3.5); Glucose 100 mg/dL (70-105); Lipase 73 U/L (8-78); Protein, Total 7.2 g/dL (6.0-8.3); Sodium 140 mmol/L (136-145)
[2021-10-10 11:20] LABS: Potassium 2.8 mmol/L (3.5-5.1)
[2021-10-10] MEDS ORDERED: Potassium Chloride 20 MEQ/100 ML PREMIX BAG ONE (12:04)
[2021-10-10] MEDS ORDERED: Potassium Chloride 20 MEQ TAB ONE (12:04)
[2021-10-10 14:40] LABS: Bacteria/HPF 3+ HPF (None Seen); Bilirubin 1+ (Negative); Blood, Urine Trace (Negative); Clarity Turbid (Clear); Glucose, Urine (Dipstick) Normal (Negative); Ketone, Urine Trace mg/dL (Negative); Leukocyte Negative Leu/uL (Negative); Nitrite Negative (Negative); Protein, Urine (Dipstick) 70 mg/dL (Neg-Trace); RBC/HPF 0-3 HPF (0-3); Specific Gravity, Urine 1.024 (1.002-1.036)
[2021-10-10] MEDS ORDERED: Acetaminophen 650 MG Suppository PR PRN (15:20)
[2021-10-10] MEDS ORDERED: 1/2 NS w/KCL 20 mEq 1,000 ML IV SCH (15:30)
[2021-10-10] MEDS ORDERED: Thiamine 100 MG TAB PO SCH (15:30)
[2021-10-10 15:35] LABS: SARS-CoV-2 NAA Rapid Test Not Detected (NotDetected)
[2021-10-10] MEDS ORDERED: Lorazepam 0.5 MG TAB PO PRN (15:58)
[2021-10-10 16:06] LABS: Acetaminophen Less than 6.0 mcg/mL (10.0-30.0); Alcohol Less than 10 mg/dL (Less than 10); Magnesium 1.6 mg/dL (1.6-2.6); Salicylate Less than 8.0 mg/dL (15.0-30.0)
[2021-10-10] MEDS ORDERED: Sodium Bicarbonate 150 MEQ in Dextrose 5% in Water 850 ML IV SCH (16:30)
[2021-10-10 17:17] LABS: Creatinine, Urine 305.96 mg/dL (47-110); Sodium, Urine Less than 20 mmol/L (Not Available); Urea Nitrogen, Random Urine 972 mg/dl
[2021-10-10] MEDS ORDERED: Promethazine HCl 12.5 MG in Sodium Chloride 0.9% 50 ML IVPB PRN ×2 (17:19→18:45)
[2021-10-10 17:30] LABS: Protein, Urine Random Quant 147 mg/dL (1-14)
[2021-10-10 17:55] LABS: Anion Gap 18 mmol/L (10-20); BUN (Urea Nitrogen) 20 mg/dL (7.0-18.7); Calc. Creatinine Clearance 56 mL/min (70-130); Calcium 9.5 mg/dL (7.8-10.44); Carbon Dioxide 14 mmol/L (22-29); Chloride 111 mmol/L (98-107); Glucose 93 mg/dL (70-105); Potassium 3.2 mmol/L (3.5-5.1); Sodium 140 mmol/L (136-145)
[2021-10-10] MEDS ORDERED: Ondansetron PF 4 MG/2 ML Vial IVP SCH (21:00)
[2021-10-10] MEDS: Ondansetron HCl/PF 8 MG in Sodium Chloride 0.9% 50 ML IVPB SCH (21:51)
[2021-10-11 05:20] LABS: #Basophils 0.1 thou/uL (0.0-0.2); #Eosinphils 0.3 thou/uL (0.0-0.7); #Lymphocytes 1.7 thou/uL (1.20-3.40); #Monocytes 0.5 thou/uL (0.11-0.59); #Neutrophils 2.9 thou/uL (1.40-6.50); %Basophils 1.3 % (0.0-1.0); %Eosinophils 5.9 % (0.0-10.0); %Monocytes 8.5 % (0.0-10.0); %Neutrophils 53.4 % (42.0-75.0); Hemoglobin 9.9 g/dL (12.0-16.0); Mean Corpuscular HGB CONC 31.9 g/dL (32.0-36.0); Mean Corpuscular Hemoglobin 29.2 pg (27.0-31.0); Mean Corpuscular Volume 91.6 fL (78.0-98.0); Mean Platelet Volume 7.4 fL (7.4-10.4); Platelet Count 370 thou/uL (130-400); RBC Distribution Width 17.1 % (11.5-14.5); Red Blood Cell (RBC) Count 3.39 mill/uL (4.20-5.40); White Blood Cell (WBC) Count 5.4 thou/uL (4.8-10.8)
[2021-10-11 05:28] LABS: ALT (SGPT) 36 U/L (8-55); AST (SGOT) 59 U/L (5-34); Albumin 2.9 g/dL (3.5-5.0); Alkaline Phosphatase 25 U/L (40-110); Anion Gap 16 mmol/L (10-20); BUN (Urea Nitrogen) 18 mg/dL (7.0-18.7); Bilirubin, Total 0.5 mg/dL (0.2-1.2); Calc. Creatinine Clearance 64 mL/min (70-130); Carbon Dioxide 21 mmol/L (22-29); Chloride 109 mmol/L (98-107); Globulin 2.8 g/dL (2.4-3.5); Glucose 112 mg/dL (70-105); Protein, Total 5.7 g/dL (6.0-8.3); Sodium 143 mmol/L (136-145)
[2021-10-11] MEDS ORDERED: Multivit, Adult Inj 10 ML VIAL IV SCH (09:00)
[2021-10-11] MEDS ORDERED: Potassium Chloride 20 MEQ in Lactated Ringer's 1,000 ML IV SCH (09:15)
[2021-10-11] MEDS: Folic Acid 1 MG TAB PO SCH (09:34)
[2021-10-11] MEDS: Thiamine HCl 200 MG/2 ML VIAL SLOW IVP SCH (09:34)
[2021-10-11] MEDS: Citalopram 10 MG TAB PO SCH (09:34)
[2021-10-11] MEDS: Ondansetron HCl/PF 8 MG in Sodium Chloride 0.9% 50 ML IVPB SCH ×2 (09:50→21:52)
[2021-10-11] MEDS: Potassium Chloride 10 MEQ/100 ML PREMIX BAG IVPB SCH (09:50)
[2021-10-11] MEDS: Multivitamins, Adult 10 ML in Sodium Chloride 0.9% 500 ML IV SCH ×3 (10:12→11:26)
[2021-10-11] MEDS: Lactated Ringer's 1,000 ML IV SCH ×2 (14:32→20:37)
[2021-10-11 15:44] VITALS: BMI 42.5
[2021-10-11] MEDS ORDERED: Nystatin Powder 15 GM BOT TOP PRN (20:34)
[2021-10-12] MEDS ORDERED: Ondansetron HCl/PF 8 MG in Sodium Chloride 0.9% 50 ML IVPB PRN (00:08)
[2021-10-12] MEDS: Lactated Ringer's 1,000 ML IV SCH ×2 (01:20→09:18)
[2021-10-12] MEDS: Metoclopramide HCl 10 MG/2 ML VIAL IVP SCH ×3 (08:42→16:32)
[2021-10-12] MEDS: Citalopram 10 MG TAB PO SCH (08:43)
[2021-10-12] MEDS: Potassium Chloride 10 MEQ/100 ML PREMIX BAG IVPB SCH (08:43)
[2021-10-12] MEDS: Folic Acid 1 MG TAB PO SCH (08:43)
[2021-10-12] MEDS: Thiamine HCl 200 MG/2 ML VIAL SLOW IVP SCH (08:43)
[2021-10-12] MEDS: Polyethylene Glycol 3350 17 GM Packet PO SCH (08:43)
[2021-10-12 08:58] LABS: #Basophils 0.1 thou/uL (0.0-0.2); #Eosinphils 0.3 thou/uL (0.0-0.7); #Lymphocytes 1.8 thou/uL (1.20-3.40); #Monocytes 0.6 thou/uL (0.11-0.59); %Basophils 1.4 % (0.0-1.0); %Eosinophils 5.9 % (0.0-10.0); %Lymphocytes 30.7 % (21.0-51.0); %Monocytes 10.6 % (0.0-10.0); %Neutrophils 51.4 % (42.0-75.0); Hemoglobin 10.9 g/dL (12.0-16.0); Mean Corpuscular HGB CONC 32.7 g/dL (32.0-36.0); Mean Corpuscular Hemoglobin 29.5 pg (27.0-31.0); Mean Corpuscular Volume 90.2 fL (78.0-98.0); Platelet Count 224 thou/uL (130-400); RBC Distribution Width 17.3 % (11.5-14.5); Red Blood Cell (RBC) Count 3.69 mill/uL (4.20-5.40); White Blood Cell (WBC) Count 5.7 thou/uL (4.8-10.8)
[2021-10-12] MEDS: Acetaminophen 325 MG TAB PO PRN ×2 (11:20→20:55)
[2021-10-12] MEDS: Multivitamins, Adult 10 ML in Sodium Chloride 0.9% 500 ML IV SCH (13:00)
[2021-10-12 13:48] LABS: ALT (SGPT) 60 U/L (8-55); AST (SGOT) 103 U/L (5-34); Albumin 3.4 g/dL (3.5-5.0); Alkaline Phosphatase 32 U/L (40-110); Anion Gap 16 mmol/L (10-20); BUN (Urea Nitrogen) 13 mg/dL (7.0-18.7); Bilirubin, Total 0.9 mg/dL (0.2-1.2); Calc. Creatinine Clearance 63 mL/min (70-130); Calcium 10.1 mg/dL (7.8-10.44); Carbon Dioxide 22 mmol/L (22-29); Chloride 108 mmol/L (98-107); Globulin 3.4 g/dL (2.4-3.5); Glucose 88 mg/dL (70-105); Protein, Total 6.8 g/dL (6.0-8.3); Sodium 143 mmol/L (136-145)
[2021-10-12] MEDS ORDERED: Ondansetron PF 4 MG/2 ML Vial IVP PRN (17:34)
[2021-10-12] MEDS ORDERED: Ondansetron ODT 4 MG TAB PO PRN (17:34)
[2021-10-13] MEDS: Lactated Ringer's 1,000 ML IV SCH ×3 (03:30→22:00)
[2021-10-13 06:54] LABS: Anion Gap 12 mmol/L (10-20); BUN (Urea Nitrogen) 12 mg/dL (7.0-18.7); Calc. Creatinine Clearance 71 mL/min (70-130); Calcium 9.4 mg/dL (7.8-10.44); Carbon Dioxide 24 mmol/L (22-29); Chloride 110 mmol/L (98-107); Glucose 82 mg/dL (70-105); Potassium 3.2 mmol/L (3.5-5.1); Sodium 143 mmol/L (136-145)
[2021-10-13 07:21] LABS: #Basophils 0.1 thou/uL (0.0-0.2); #Eosinphils 0.3 thou/uL (0.0-0.7); #Lymphocytes 1.8 thou/uL (1.20-3.40); #Monocytes 0.3 thou/uL (0.11-0.59); #Neutrophils 2.8 thou/uL (1.40-6.50); %Basophils 1.5 % (0.0-1.0); %Eosinophils 5.3 % (0.0-10.0); %Lymphocytes 33.1 % (21.0-51.0); %Monocytes 6.4 % (0.0-10.0); %Neutrophils 53.8 % (42.0-75.0); Hemoglobin 10.4 g/dL (12.0-16.0); Mean Corpuscular Hemoglobin 29.1 pg (27.0-31.0); Mean Corpuscular Volume 91.1 fL (78.0-98.0); Mean Platelet Volume 6.9 fL (7.4-10.4); Platelet Count 408 thou/uL (130-400); RBC Distribution Width 17.2 % (11.5-14.5); Red Blood Cell (RBC) Count 3.57 mill/uL (4.20-5.40); White Blood Cell (WBC) Count 5.3 thou/uL (4.8-10.8)
[2021-10-13] MEDS: Metoclopramide HCl 10 MG/2 ML VIAL IVP SCH ×3 (09:12→16:35)
[2021-10-13] MEDS: Folic Acid 1 MG TAB PO SCH (09:12)
[2021-10-13] MEDS: Thiamine HCl 200 MG/2 ML VIAL SLOW IVP SCH (09:12)
[2021-10-13] MEDS: Citalopram 10 MG TAB PO SCH (09:12)
[2021-10-13] MEDS: Polyethylene Glycol 3350 17 GM Packet PO SCH (09:12)
[2021-10-13] MEDS ORDERED: Potassium Chloride 20 MEQ TAB PO SCH (10:00)
[2021-10-13] MEDS: Potassium Chloride 10 MEQ/100 ML PREMIX BAG IVPB SCH (11:18)
[2021-10-13] MEDS: Multivitamins, Adult 10 ML in Sodium Chloride 0.9% 500 ML IV SCH (11:19)
[2021-10-13] MEDS ORDERED: Bisacodyl 10 MG SUPP PR SCH (21:00)
[2021-10-14 05:00] LABS: #Basophils 0.1 thou/uL (0.0-0.2); #Eosinphils 0.3 thou/uL (0.0-0.7); #Lymphocytes 1.7 thou/uL (1.20-3.40); #Monocytes 0.5 thou/uL (0.11-0.59); #Neutrophils 3.4 thou/uL (1.40-6.50); %Basophils 1.2 % (0.0-1.0); %Lymphocytes 28.5 % (21.0-51.0); %Monocytes 8.4 % (0.0-10.0); %Neutrophils 56.9 % (42.0-75.0); Hemoglobin 10.1 g/dL (12.0-16.0); Mean Corpuscular HGB CONC 31.9 g/dL (32.0-36.0); Mean Corpuscular Hemoglobin 29.3 pg (27.0-31.0); Mean Corpuscular Volume 91.9 fL (78.0-98.0); Mean Platelet Volume 6.6 fL (7.4-10.4); Platelet Count 388 thou/uL (130-400); RBC Distribution Width 17.3 % (11.5-14.5); Red Blood Cell (RBC) Count 3.45 mill/uL (4.20-5.40)
[2021-10-14 05:24] LABS: Anion Gap 14 mmol/L (10-20); BUN (Urea Nitrogen) 10 mg/dL (7.0-18.7); Calc. Creatinine Clearance 86 mL/min (70-130); Calcium 8.9 mg/dL (7.8-10.44); Carbon Dioxide 19 mmol/L (22-29); Chloride 112 mmol/L (98-107); Glucose 89 mg/dL (70-105); Magnesium 1.6 mg/dL (1.6-2.6); Potassium 3.3 mmol/L (3.5-5.1); Sodium 142 mmol/L (136-145)
[2021-10-14] MEDS: Lactated Ringer's 1,000 ML IV SCH (07:31)
[2021-10-14] MEDS ORDERED: Potassium Chloride 20 MEQ TAB PO SCH (09:30)
[2021-10-14] MEDS: Polyethylene Glycol 3350 17 GM Packet PO SCH (09:56)
[2021-10-14] MEDS: Citalopram 10 MG TAB PO SCH (09:56)
[2021-10-14] MEDS: Folic Acid 1 MG TAB PO SCH (09:56)
[2021-10-14] MEDS: Thiamine HCl 200 MG/2 ML VIAL SLOW IVP SCH (09:56)
[2021-10-14] MEDS: Metoclopramide HCl 10 MG/2 ML VIAL IVP SCH ×2 (09:56→12:05)
[2021-10-14] MEDS ORDERED: Magnesium Sulfate 2 GM in Sodium Chloride 0.9% 100 ML IVPB SCH (10:00)
[2021-10-14] MEDS ORDERED: Metoprolol Tartrate 25 MG TAB PO SCH ×2 (10:00→21:00)
[2021-10-14] MEDS ORDERED: Magnesium 2 GM/50 ML 2 GM in Premix Bag 1 BAG IVPB SCH (10:15)
[2021-10-14] MEDS: Acetaminophen 325 MG TAB PO PRN (10:16)
[2021-10-14 12:04] VITALS: TEMP 97.2
[2021-10-14 12:49] VITALS: BP 175/100
== END 2021-10-14 13:21 | disposition home or self-care (01) | DRG 682 ==
LOC: ERS 09:51 → ERHOLD 13:59 → 2NO 16:06
PROVIDERS: ADMIT Family Medicine; ATTEND Internal Medicine
DX: N17.9 Acute kidney failure, unspecified (principal); Z20.822 Contact with and (suspected) exposure to COVID-19; G92.8 Other toxic encephalopathy; E87.2 Acidosis; E51.2 Wernicke's encephalopathy; Z68.41 Body mass index [BMI] 40.0-44.9, adult; I25.10 Atherosclerotic heart disease of native coronary artery without angina pectoris; E78.5 Hyperlipidemia, unspecified; K29.70 Gastritis, unspecified, without bleeding; E87.6 Hypokalemia; F41.9 Anxiety disorder, unspecified; F32.A Depression, unspecified; K31.84 Gastroparesis; K59.00 Constipation, unspecified; N18.30 Chronic kidney disease, stage 3 unspecified; E83.42 Hypomagnesemia; D53.9 Nutritional anemia, unspecified; E66.01 Morbid (severe) obesity due to excess calories; R79.89 Other specified abnormal findings of blood chemistry; T73.0XXA Starvation, initial encounter; E88.89 Other specified metabolic disorders; Z88.1 Allergy status to other antibiotic agents; Z88.8 Allergy status to other drugs, medicaments and biological substances; Z91.018 Allergy to other foods; Z79.899 Other long term (current) drug therapy; Z79.51 Long term (current) use of inhaled steroids; Z79.82 Long term (current) use of aspirin; Z86.19 Personal history of other infectious and parasitic diseases
CPT/HCPCS: 36415; 71045; 74176; 80048; 80053; 80307; 81003; 81015; 82010; 82570; 83605; 83690; 83735; 84156; 84300; 84540; 84703; 85025; 93005; J2060; J2405; J2550; J2765; J3411; J3475; J3480; J3490; J7030; J7070; J7120; U0002

== ENCOUNTER 2022-05-26 08:33 | Outpatient (CLI) | payer OTHER ==
[2022-05-26] MEDS ORDERED: Magnevist 469MG/ML 20 ML VIAL ONE (10:15)
== END 2022-05-26 08:34 | disposition home or self-care (01) ==
LOC: MRI 08:33
PROVIDERS: ATTEND Psychiatry & Neurology Neurology
DX: E51.2 Wernicke's encephalopathy (principal)
CPT/HCPCS: 70553; A9579

== ENCOUNTER 2024-04-19 14:53 | Outpatient (CLI) | payer OTHER | END 2024-04-19 14:54 | disposition home or self-care (01) | LOC: BICMAMMO 14:53 | PROVIDERS: ATTEND Family Medicine | DX: Z12.31 Encounter for screening mammogram for malignant neoplasm of breast (principal) | CPT/HCPCS: 77063; 77067 ==